=== PATIENT | male | born 1945 | race Caucasian/White ===

== ENCOUNTER 2017-12-21 16:36 | Inpatient (IN) | payer OTHER ==
[~2017-12-21] VITALS: Ht 170.1 cm; Wt 83.1 kg
[~2017-12-21 16:36] MED LIST: ASPIRIN325 MG PO; CILOSTAZOL100 MG PO; FLONASE 0.05% 121 EA NAS; NEXIUM 24HR20 MG PO; RANITIDINE150 MG PO; SIMVASTATIN80 MG PO; TOPROL XL25 MG PO; TOPROL XL50 MG PO
[2017-12-21 16:59] VITALS: BP 80/55
[2017-12-21 17:14] LABS: HEMATOCRIT 40.5 % (42.0-52.0); HEMOGLOBIN 13.6 g/dl (14.0-18.0); MEAN CELL VOLUME 88.4 fl (80.0-94.0); MEAN CORPUSCULAR HGB 29.7 pg (27.0-31.0); MEAN CORPUSCULAR HGB CONC 33.6 g/dl (33.0-37.0); MEAN PLATELET VOLUME 11.2 fl (9.6-12.3); PLATELET COUNT AUTOMATED 157 10*3/uL (130-400); RED BLOOD COUNT 4.58 10*6/uL (4.50-5.90); RED CELL DISTRI WIDTH 12.6 % (0-14.5)
[2017-12-21 17:34] LABS: ALBUMIN 3.9 gm/dl (3.1-4.5); ALKALINE PHOSPHATASE 59 U/L (45-117); BUN 18 mg/dl (7-24); CHLORIDE 104 mmol/L (98-107); CREATININE 1.37 mg/dL (0.70-1.30); POTASSIUM 4.1 mmol/L (3.5-5.1); SGOT/AST 18 IU/L (3-35); SGPT/ALT 20 U/L (12-78); SODIUM 138 mmol/L (136-145); TOTAL PROTEIN 7.3 gm/dL (6.4-8.2)
[2017-12-21 17:39] LABS: PLATELET SUFFICIENCY NORMAL (NORMAL); TOTAL CELLS COUNTED 100 #CELLS
[2017-12-21 17:40] LABS: BURR CELLS FEW
[2017-12-21 19:18] VITALS: BP 95/49
[2017-12-21 21:27] LABS: BILIRUBIN NEGATIVE (NEGATIVE); BLOOD NEGATIVE (NEGATIVE); CLARITY CLEAR (CLEAR); COLOR YELLOW (YELLOW); GLUCOSE NEGATIVE (NEGATIVE); KETONE NEGATIVE (NEGATIVE); LEUKO ESTERASE NEGATIVE (NEGATIVE); NITRITE NEGATIVE (NEGATIVE); SPECIFIC GRAVITY 1.025 (1.005-1.030); UROBILINOGEN 0.2 E.U./dl (0.2-1.0)
[2017-12-21 21:33] LABS: BACTERIA TRACE; MUCOUS 1+; WBC 0-2 wbc/hpf (0-5)
[2017-12-21 22:00] VITALS: BP 95/46
[2017-12-21 22:01] VITALS: BP 95/46
[2017-12-21] MEDS ORDERED: TOPROL XL50 M1 PO (22:03)
[2017-12-21] MEDS ORDERED: TOPROL XL25 MG PO (22:06)
[2017-12-21] MEDS ORDERED: NEURONTIN300 MG PO (22:33)
[2017-12-21] MEDS ORDERED: GABAPENTIN100 M2 PO (22:33)
[2017-12-21] MEDS ORDERED: CILOSTAZOL100 MG PO (22:34)
[2017-12-21] MEDS ORDERED: IBUPROFEN400 MG PO (22:34)
[2017-12-21] MEDS ORDERED: TAMSULOSIN HCL0.4 MG PO (22:35)
[2017-12-21] MEDS ORDERED: AMITRIPTYLINE25 MG PO (22:35)
[2017-12-22 02:41] LABS: HEMATOCRIT 37.4 % (42.0-52.0); HEMOGLOBIN 12.5 g/dl (14.0-18.0); MEAN CELL VOLUME 88.2 fl (80.0-94.0); MEAN CORPUSCULAR HGB 29.5 pg (27.0-31.0); MEAN CORPUSCULAR HGB CONC 33.4 g/dl (33.0-37.0); MEAN PLATELET VOLUME 10.7 fl (9.6-12.3); PLATELET COUNT AUTOMATED 134 10*3/uL (130-400); RED BLOOD COUNT 4.24 10*6/uL (4.50-5.90); RED CELL DISTRI WIDTH 12.8 % (0-14.5); WHITE BLOOD COUNT 6.1 10*3/uL (4.8-10.8)
[2017-12-22 02:52] LABS: BUN 15 mg/dl (7-24); CHLORIDE 112 mmol/L (98-107); CREATININE 1.25 mg/dL (0.70-1.30); POTASSIUM 3.4 mmol/L (3.5-5.1); SODIUM 142 mmol/L (136-145)
[2017-12-22 02:57] LABS: PHOSPHOROUS 2.5 mg/dL (2.5-4.9)
[2017-12-22 03:03] LABS: THYROID STIM HORMONE (HS) 0.769 uIU/ml (0.358-4.75)
[2017-12-22 03:06] LABS: PLATELET SUFFICIENCY NORMAL (NORMAL); TOTAL CELLS COUNTED 100 #CELLS
[2017-12-22 03:49] LABS: VITAMIN D, 25-HYDROXY 14.1 ng/mL (30-100)
[2017-12-22 04:00] VITALS: BP 90/50
[2017-12-22 07:32] VITALS: BP 96/48
[2017-12-22 11:32] VITALS: BP 90/52
[2017-12-22 16:00] VITALS: BP 109/89
[2017-12-22 20:04] VITALS: BP 106/61
[2017-12-23 00:23] VITALS: BP 125/49
[2017-12-23 07:27] LABS: BASO % 0.4 % (0.0-1.0); EOS # 0.1 10*3/uL (0.0-0.4); EOS % 2.7 % (1.0-4.0); HEMOGLOBIN 12.8 g/dl (14.0-18.0); LYMPH # 1.2 10*3/uL (1.3-4.4); LYMPH % 27.2 % (27.0-41.0); MEAN CELL VOLUME 90.3 fl (80.0-94.0); MEAN CORPUSCULAR HGB 30.4 pg (27.0-31.0); MEAN CORPUSCULAR HGB CONC 33.7 g/dl (33.0-37.0); MEAN PLATELET VOLUME 11.6 fl (9.6-12.3); MONO # 0.6 10*3/uL (0.1-1.0); MONO % 12.8 % (3.0-9.0); NEUT # 2.6 10*3/uL (2.3-7.9); NEUT % 56.7 % (47.0-73.0); PLATELET COUNT AUTOMATED 125 10*3/uL (130-400); RED BLOOD COUNT 4.21 10*6/uL (4.50-5.90); RED CELL DISTRI WIDTH 13.1 % (0-14.5); WHITE BLOOD COUNT 4.5 10*3/uL (4.8-10.8)
[2017-12-23 07:50] LABS: ALBUMIN 2.7 gm/dl (3.1-4.5); BUN 9 mg/dl (7-24); CHLORIDE 111 mmol/L (98-107); CREATININE 1.37 mg/dL (0.70-1.30); POTASSIUM 3.4 mmol/L (3.5-5.1); SGOT/AST 17 IU/L (3-35); SGPT/ALT 16 U/L (12-78); SODIUM 142 mmol/L (136-145)
[2017-12-23 07:52] LABS: ALKALINE PHOSPHATASE 45 U/L (45-117); TOTAL PROTEIN 5.8 gm/dL (6.4-8.2)
[2017-12-23 08:00] VITALS: BP 144/67
[2017-12-23 12:00] VITALS: BP 114/55; BP 134/70
[2017-12-23 16:00] VITALS: BP 151/86
[2017-12-23 20:00] VITALS: BP 128/77
[2017-12-24] VITALS: BP 107/58
[2017-12-24 06:02] LABS: BASO % 0.4 % (0.0-1.0); EOS # 0.2 10*3/uL (0.0-0.4); EOS % 2.7 % (1.0-4.0); HEMATOCRIT 37.3 % (42.0-52.0); HEMOGLOBIN 12.5 g/dl (14.0-18.0); LYMPH # 1.2 10*3/uL (1.3-4.4); LYMPH % 16.7 % (27.0-41.0); MEAN CORPUSCULAR HGB 29.8 pg (27.0-31.0); MEAN CORPUSCULAR HGB CONC 33.5 g/dl (33.0-37.0); MEAN PLATELET VOLUME 11.9 fl (9.6-12.3); MONO # 0.6 10*3/uL (0.1-1.0); MONO % 8.9 % (3.0-9.0); PLATELET COUNT AUTOMATED 136 10*3/uL (130-400); RED BLOOD COUNT 4.19 10*6/uL (4.50-5.90); RED CELL DISTRI WIDTH 13.1 % (0-14.5); WHITE BLOOD COUNT 7.1 10*3/uL (4.8-10.8)
[2017-12-24 06:20] LABS: ALBUMIN 2.9 gm/dl (3.1-4.5); BUN 11 mg/dl (7-24); CHLORIDE 108 mmol/L (98-107); CREATININE 1.25 mg/dL (0.70-1.30); POTASSIUM 3.4 mmol/L (3.5-5.1); SGOT/AST 17 IU/L (3-35); SGPT/ALT 17 U/L (12-78); SODIUM 141 mmol/L (136-145)
[2017-12-24 06:22] LABS: ALKALINE PHOSPHATASE 47 U/L (45-117); TOTAL PROTEIN 6.2 gm/dL (6.4-8.2)
[2017-12-24 08:00] VITALS: BP 105/63; BP 92/58
[2017-12-24 12:00] VITALS: BP 107/61
[2017-12-24 16:00] VITALS: BP 110/78
[2017-12-24 20:00] VITALS: BP 140/72
[2017-12-25] VITALS: BP 131/73
[2017-12-25 07:51] LABS: BUN 14 mg/dl (7-24); CHLORIDE 107 mmol/L (98-107); CREATININE 1.22 mg/dL (0.70-1.30); POTASSIUM 3.7 mmol/L (3.5-5.1); SODIUM 140 mmol/L (136-145)
[2017-12-25 08:00] VITALS: BP 124/72
[2017-12-25] MEDS ORDERED: TOPROL XL50 M1 PO (09:49)
[2017-12-25] MEDS ORDERED: VITAMIN D-32000 UNIT PO (09:49)
[2017-12-25] MEDS ORDERED: DOXYCYCLINE100 M3 PO (09:49)
== END 2017-12-25 11:29 | disposition home or self-care (01) | DRG 871 ==
LOC: ED 16:36 → 4E 19:52 → EDHOLD 19:52 → 4E 20:10
PROVIDERS: Family Medicine; Internal Medicine; Physician Assistant; Student in an Organized Health Care Education/Training Program
DX: A41.9 Sepsis, unspecified organism (principal); N17.0 Acute kidney failure with tubular necrosis; E87.2 Acidosis; J18.1 Lobar pneumonia, unspecified organism; E55.9 Vitamin D deficiency, unspecified; I10 Essential (primary) hypertension; J43.9 Emphysema, unspecified; R65.20 Severe sepsis without septic shock; J11.1 Influenza due to unidentified influenza virus with other respiratory manifestations; D64.9 Anemia, unspecified; D72.810 Lymphocytopenia; E78.5 Hyperlipidemia, unspecified; I73.9 Peripheral vascular disease, unspecified; Z98.62 Peripheral vascular angioplasty status; Z87.891 Personal history of nicotine dependence; Z80.0 Family history of malignant neoplasm of digestive organs; Z79.82 Long term (current) use of aspirin; Z79.899 Other long term (current) drug therapy

== ENCOUNTER → 2020-01-25 | Outpatient (CLI) | payer OTHER ==
[~2020-01-25] MED LIST changes: +AMITRIPTYLINE25 MG PO; +DOXYCYCLINE100 M3 PO; +GABAPENTIN100 M2 PO; +IBUPROFEN400 MG PO; +NEURONTIN300 MG PO; +TAMSULOSIN HCL0.4 MG PO; +TOPROL XL50 M1 PO; +VITAMIN D-32000 UNIT PO
== END | disposition home or self-care (01) ==
LOC: RAD 12:43
DX: J44.9 Chronic obstructive pulmonary disease, unspecified (principal); J92.9 Pleural plaque without asbestos; L29.9 Pruritus, unspecified; L30.9 Dermatitis, unspecified

== ENCOUNTER 2021-01-07 14:36 | Emergency (ER) | payer OTHER ==
[~2021-01-07] VITALS: Ht 170.1 cm; Wt 82.6 kg
[2021-01-07 17:55] LABS: BASO % 0.5 % (0.0-1.0); EOS # 0.1 10*3/uL (0.0-0.4); EOS % 0.9 % (1.0-4.0); HEMATOCRIT 47.9 % (42.0-52.0); LYMPH # 2.1 10*3/uL (1.3-4.4); LYMPH % 23.7 % (27.0-41.0); MEAN CELL VOLUME 88.5 fl (80.0-94.0); MEAN CORPUSCULAR HGB 29.4 pg (27.0-31.0); MEAN CORPUSCULAR HGB CONC 33.2 g/dl (33.0-37.0); MEAN PLATELET VOLUME 10.8 fl (9.6-12.3); MONO # 0.9 10*3/uL (0.1-1.0); MONO % 10.4 % (3.0-9.0); NEUT # 5.6 10*3/uL (2.3-7.9); PLATELET COUNT AUTOMATED 189 10*3/uL (130-400); RED BLOOD COUNT 5.41 10*6/uL (4.50-5.90); RED CELL DISTRI WIDTH 12.7 % (0-14.5); WHITE BLOOD COUNT 8.7 10*3/uL (4.8-10.8)
[2021-01-07 18:12] LABS: ALBUMIN 3.9 gm/dl (3.1-4.5); ALKALINE PHOSPHATASE 52 U/L (45-117); BUN 21 mg/dl (7-24); CHLORIDE 108 mmol/L (98-107); CREATININE 1.21 mg/dL (0.70-1.30); LIPASE 153 U/L (73-393); POTASSIUM 4.8 mmol/L (3.5-5.1); SGOT/AST 35 IU/L (3-35); SGPT/ALT 56 U/L (12-78); SODIUM 141 mmol/L (136-145); TOTAL PROTEIN 7.6 gm/dL (6.4-8.2); TROPONIN I < 0.015 ng/ml (<0.045)
[2021-01-07] MEDS ORDERED: OMEPRAZOLE20 M2 PO (20:27)
[2021-01-07] MEDS ORDERED: PEPCID20 MG PO (20:27)
== END 2021-01-07 20:48 | disposition home or self-care (01) ==
LOC: ED 14:36
PROVIDERS: Physician Assistant
DX: R10.13 Epigastric pain (principal); R11.0 Nausea; R19.7 Diarrhea, unspecified; K21.9 Gastro-esophageal reflux disease without esophagitis; I10 Essential (primary) hypertension; E78.00 Pure hypercholesterolemia, unspecified; Z79.899 Other long term (current) drug therapy; Z79.82 Long term (current) use of aspirin; Z98.890 Other specified postprocedural states; Z87.891 Personal history of nicotine dependence

== ENCOUNTER → 2021-12-04 | Outpatient (CLI) | payer MEDICARE ==
[~2021-12-04] MED LIST changes: +OMEPRAZOLE20 M2 PO; +PEPCID20 MG PO
== END ==
LOC: COVID19 16:19
PROVIDERS: ATTEND Internal Medicine
DX: Z11.52 Encounter for screening for COVID-19 (principal); Z20.822 Contact with and (suspected) exposure to COVID-19

== ENCOUNTER → 2023-11-07 | Outpatient (CLI) | payer OTHER ==
[~2023-11-07] MED LIST changes: +METFORMIN HYDR500 MG PO; +MUCUS RELIEF600 MG PO; +ZITHROMAX TRI-500 M1 PO
== END | disposition home or self-care (01) ==
LOC: CT 03:15
PROVIDERS: ATTEND Physician Assistant
DX: K57.30 Diverticulosis of large intestine without perforation or abscess without bleeding (principal); K76.0 Fatty (change of) liver, not elsewhere classified; Z98.890 Other specified postprocedural states; Z95.828 Presence of other vascular implants and grafts

== ENCOUNTER → 2024-01-04 | Day surgery (SDC) | payer OTHER ==
[~2024-01-04] VITALS: Ht 167.6 cm; Wt 86.2 kg
[~2024-01-04] MED LIST changes: +Midazolam Hydrochloride 2 MG/2 ML VIAL IV ONE; +PROPOFOL 200 MG/20 ML VIAL IV ONE; +SODIUM CHLORIDE 0.9% 0 ML IV ONE; +SODIUM CHLORIDE 0.9% 1,000 ML IV ONE
[2024-01-04 09:13] VITALS: BP 117/60
[2024-01-04 11:18] VITALS: BP 114/47
[2024-01-04 11:33] VITALS: BP 120/55
[2024-01-04 11:48] VITALS: BP 122/77
== END ==
LOC: SDC 12-31 09:30
PROVIDERS: ATTEND Surgery
DX: Z12.11 Encounter for screening for malignant neoplasm of colon (principal); K57.30 Diverticulosis of large intestine without perforation or abscess without bleeding; K64.1 Second degree hemorrhoids; R10.13 Epigastric pain; D13.1 Benign neoplasm of stomach; K29.80 Duodenitis without bleeding; K29.50 Unspecified chronic gastritis without bleeding; K21.9 Gastro-esophageal reflux disease without esophagitis; I10 Essential (primary) hypertension; E78.00 Pure hypercholesterolemia, unspecified; E11.9 Type 2 diabetes mellitus without complications; J44.9 Chronic obstructive pulmonary disease, unspecified; I25.10 Atherosclerotic heart disease of native coronary artery without angina pectoris; Z87.891 Personal history of nicotine dependence; Z98.890 Other specified postprocedural states; Z79.82 Long term (current) use of aspirin; Z79.899 Other long term (current) drug therapy

== ENCOUNTER → 2024-04-01 | Outpatient (CLI) | payer MEDICARE ==
[~2024-04-01] MED LIST changes: -Midazolam Hydrochloride 2 MG/2 ML VIAL IV ONE; -PROPOFOL 200 MG/20 ML VIAL IV ONE; -SODIUM CHLORIDE 0.9% 0 ML IV ONE; -SODIUM CHLORIDE 0.9% 1,000 ML IV ONE
== END | disposition home or self-care (01) ==
LOC: CT 01:30
PROVIDERS: ATTEND Physician Assistant
DX: J44.9 Chronic obstructive pulmonary disease, unspecified (principal); F17.201 Nicotine dependence, unspecified, in remission; J92.9 Pleural plaque without asbestos; Z95.1 Presence of aortocoronary bypass graft

== ENCOUNTER → 2024-12-02 | Outpatient (CLI) | payer MEDICARE ==
[~2024-12-02] MED LIST changes: +IOHEXOL 300 MG/ML 100 ML VIAL IV ONE; +IOHEXOL 300 MG/ML 100 ML VIAL ONE
== END | disposition home or self-care (01) ==
LOC: CT 00:03
PROVIDERS: ATTEND Physician Assistant
DX: R91.8 Other nonspecific abnormal finding of lung field (principal); I70.8 Atherosclerosis of other arteries

== ENCOUNTER → 2025-07-13 | Outpatient (CLI) | payer OTHER ==
[~2025-07-13] MED LIST changes: -IOHEXOL 300 MG/ML 100 ML VIAL IV ONE; -IOHEXOL 300 MG/ML 100 ML VIAL ONE
== END ==
LOC: CT 10:42
PROVIDERS: ATTEND Internal Medicine Critical Care Medicine
DX: R91.1 Solitary pulmonary nodule (principal); J92.0 Pleural plaque with presence of asbestos; Z68.29 Body mass index [BMI] 29.0-29.9, adult; Z87.891 Personal history of nicotine dependence